=== PATIENT | female | born 1975 | race Caucasian/White ===

== ENCOUNTER 2020-05-19 21:33 | Emergency (ER) | payer OTHER ==
[~2020-05-19] VITALS: Ht 165.1 cm; Wt 86.2 kg
[2020-05-19] MEDS ORDERED: LOSARTAN-HCTZ1 EACH (21:46)
== END 2020-05-20 00:30 ==
LOC: ER 21:33
DX: N39.0 Urinary tract infection, site not specified (principal)

== ENCOUNTER 2024-07-20 21:50 | Emergency (ER) | payer OTHER ==
[~2024-07-20] VITALS: Ht 165.1 cm; Wt 93.0 kg
[~2024-07-20 21:50] MED LIST: LOSARTAN-HCTZ1 EACH
[2024-07-20] MEDS ORDERED: METHYLPREDNISOLONE SOD SUCC 125 MG VIAL IM STA (23:10)
[2024-07-20] MEDS ORDERED: DIPHENHYDRAMINE HCL 50 MG/ML VIAL 1ML IM STA (23:11)
== END 2024-07-20 23:58 | disposition home or self-care (01) ==
LOC: ER 21:52
DX: L50.9 Urticaria, unspecified (principal); Z88.0 Allergy status to penicillin